=== PATIENT | female | born 2000 | race American Indian/Alaskan Native ===

== ENCOUNTER 2022-06-23 00:46 | Emergency (ER) | payer SELFPAY | END 2022-06-23 03:56 | disposition home or self-care (01) | LOC: MW.ED 00:46 | DX: S00.83XA Contusion of other part of head, initial encounter (principal); S70.02XA Contusion of left hip, initial encounter; S90.02XA Contusion of left ankle, initial encounter; Z88.0 Allergy status to penicillin; Y04.2XXA Assault by strike against or bumped into by another person, initial encounter | CPT/HCPCS: 70450; 70450-26; 70486; 70486-26; 73080-26-LT; 73080-LT; 73502-26-LT; 73502-LT; 73610-26-LT; 73610-LT; 81025; 99285 ==